=== PATIENT | male | born 1980 | race Two or more races ===

== ENCOUNTER 2022-06-30 15:51 | Emergency (ER) | payer SELFPAY ==
[~2022-06-30] VITALS: Ht 165.1 cm; Wt 97.7 kg
[2022-06-30] MEDS ORDERED: DexAMETHasone SOD PHOS 10MG/1ML VIAL INJ IM ONE (17:00)
[2022-06-30] MEDS ORDERED: hydrOXYzine HCL 10 MG TAB PO ONE (17:00)
[2022-06-30 18:19] VITALS: BP 125/80
== END 2022-06-30 18:21 | disposition home or self-care (01) ==
LOC: ER 15:51
DX: T39.1X5A Adverse effect of 4-Aminophenol derivatives, initial encounter (principal); Y92.89 Other specified places as the place of occurrence of the external cause
CPT/HCPCS: 96372; 99283; J1100